=== PATIENT | female | born 1950 | race Two or more races ===

== ENCOUNTER → 2018-06-29 12:40 | Outpatient (CLI) | payer OTHER | END | disposition home or self-care (01) | LOC: SURG-SUITE 12:15 → EDSTATUS 12:15 → RAD 12:40 | DX: M25.531 Pain in right wrist (principal); S69.91XA Unspecified injury of right wrist, hand and finger(s), initial encounter ==

== ENCOUNTER 2018-08-12 19:14 | Emergency (ER) | payer OTHER ==
[~2018-08-12] VITALS: Ht 152.4 cm; Wt 52.2 kg
[2018-08-12] MEDS ORDERED: CENTRUM ADULTS1 EACH (19:21)
[2018-08-12] MEDS ORDERED: IBERSARTAN (19:21)
== END 2018-08-12 20:27 | disposition home or self-care (01) ==
LOC: ER 19:14 → EDBD 19:15 → ER 19:15
DX: M54.5 Low back pain (principal)

== ENCOUNTER 2018-08-15 14:40 | Inpatient (IN) | payer OTHER ==
[~2018-08-15] VITALS: Ht 152.4 cm; Wt 46.3 kg
[~2018-08-15 14:40] MED LIST: CENTRUM ADULTS1 EACH; IBERSARTAN
[2018-08-15] MEDS ORDERED: AVAPRO150 MG (15:04)
[2018-08-21] MEDS ORDERED: CARdura 2MG TABLET PO (08:34)
[2018-08-21] MEDS ORDERED: OXYC1TAB9 PO (08:34)
[2018-08-21] MEDS ORDERED: FENTANYL1 EAC3 TD (08:34)
[2018-08-21] MEDS ORDERED: DECADRON4 MG PO (08:34)
[2018-08-22] MEDS ORDERED: FENTANYL1 EAC3 TD (09:39)
== END 2018-08-21 16:27 | disposition home or self-care (01) | DRG 812 ==
LOC: ER 14:40 → MEDJ 08-16 09:03 → SEC-K 08-16 09:03 → EDBD 08-16 09:03 → MEDJ 08-16 14:08
PROVIDERS: ADMIT Internal Medicine
PROC: 30233N1 Transfusion of Nonautologous Red Blood Cells into Peripheral Vein, Percutaneous Approach (ICD-10-PCS; principal; 2018-08-15)
PROC: BW21ZZZ Computerized Tomography (CT Scan) of Abdomen and Pelvis (ICD-10-PCS; 2018-08-15)
PROC: BW40ZZZ Ultrasonography of Abdomen (ICD-10-PCS; 2018-08-15)
PROC: BR39ZZZ Magnetic Resonance Imaging (MRI) of Lumbar Spine (ICD-10-PCS; 2018-08-17)
DX: D64.89 Other specified anemias (principal); N17.8 Other acute kidney failure; C90.00 Multiple myeloma not having achieved remission; D61.82 Myelophthisis; T39.395A Adverse effect of other nonsteroidal anti-inflammatory drugs [NSAID], initial encounter; I10 Essential (primary) hypertension; E83.52 Hypercalcemia; D69.49 Other primary thrombocytopenia; M54.5 Low back pain
CPT/HCPCS: 72146; 72158